=== PATIENT | male | born 1995 | race Caucasian/White ===

== ENCOUNTER → 2023-02-20 15:08 | Outpatient (ROUT) | payer BC, SELFPAY ==
[2023-02-25 10:56] LABS: HSV 1 DNA NEGATIVE
[2023-02-25 11:14] LABS: HSV 2 DNA NEGATIVE
== END ==
PROVIDERS: Family Provider Family Medicine; Visit Provider Dermatology
DX: R21 Rash and other nonspecific skin eruption (principal)
CPT/HCPCS: 87070; 87075; 87077; 87147; 87186; 87205; 87529